=== PATIENT | female | born 1990 | race African-American/Black ===

== ENCOUNTER 2022-08-04 18:43 | Emergency (ER) | payer OTHER, SELFPAY ==
[2022-08-04] MEDS ORDERED: Proparacaine 0.5% Opth 15 ML BOT ONE (19:17)
[2022-08-04] MEDS ORDERED: Fluorescein Opthalmic Strip ONE (19:17)
[2022-08-04] MEDS ORDERED: Boostrix 0.5 ML (Tdap) VIAL (>/=7 yrs of age) ONE (19:20)
[2022-08-04 20:21] LABS: ALT (SGPT) 12 U/L (8-55); AST (SGOT) 15 U/L (5-34); Albumin 4.2 g/dL (3.5-5.0); Alkaline Phosphatase 70 U/L (40-110); Anion Gap 10 mmol/L (10-20); BUN (Urea Nitrogen) 13 mg/dL (7.0-18.7); Bilirubin, Total 0.2 mg/dL (0.2-1.2); Calc. Creatinine Clearance 0 mL/min (70-130); Calcium 9.7 mg/dL (7.8-10.44); Carbon Dioxide 25 mmol/L (22-29); Chloride 106 mmol/L (98-107); Estimated GFR 92; Globulin 3.7 g/dL (2.4-3.5); Glucose 82 mg/dL (70-105); Potassium 3.9 mmol/L (3.5-5.1); Protein, Total 7.9 g/dL (6.0-8.3); Sodium 137 mmol/L (136-145)
== END 2022-08-04 20:20 | disposition home or self-care (01) ==
LOC: EEVIPCON 18:43 → ERS 18:43
DX: S00.81XA Abrasion of other part of head, initial encounter (principal); F17.210 Nicotine dependence, cigarettes, uncomplicated; Y04.8XXA Assault by other bodily force, initial encounter; Z23 Encounter for immunization
CPT/HCPCS: 36415; 70450; 80053; 90471; 90715